=== PATIENT | female | born 1945 | race African-American/Black ===

== ENCOUNTER 2016-08-15 04:51 | Emergency (ER) | payer MEDICARE ==
[~2016-08-15] VITALS: Ht 162.6 cm; Wt 126.6 kg
[~2016-08-15 04:51] MED LIST: ACET500T33 PO; ALPR0.5T PO; AMIT50TA PO; ASPI81TA2 PO; ATEN50TA PO; DICL75TA PO; FURO40TA4 PO; GABA600T PO; GLUC1VIA3 IJ; GUAI473L15 PO; GUAI473S3 PO; HYDR25TA PO; INSU100I13 SQ; INSU100I15 SQ; IPRA4AER IH; LEVO500T38 PO; LEVO88TA4 PO; LISI-338 PO; LISI40TA PO; MENT113P2 TP; METF500T4 PO; METO25TA4 PO; MULT-18 PO; MULT1TAB52 PO; NIFE90TA PO; OMEG-33 PO; OMEP20TA PO; PANT40TA5 PO; PHEN95CM MC; POTA20TA12 PO; SULF1TAB24 PO; TERB15CR2 TP; [UNRECOGNIZED DRUG - CODE] PO
[2016-08-15] MEDS ORDERED: IV NORMAL SALINE 1000ML BAG 1,000 ML IV SCH (05:15)
--- NOTE | 2016-08-15 05:15 | PHYS DOC ---
Past Medical History Past Medical History: Arthritis, Diabetes-Type II, GERD, Heart Disease, Hypertension, Hypothyroid, URI, UTI, Other Additional Past Medical Histor: IBS, RECTAL PROBLEMS (pin worm) Past Surgical History: Cholecystectomy Additional Past Surgical Histo: RECENT CARDIAC CATH, MMK(bladder lift), THYROIDECTOMY Alcohol Use: Rarely Drug Use: None Adult General Chief Complaint Chief Complaint: COUGH HPI HPI Patient is a 70 year old female who presents with cough. Patient reports for 3 days she has had productive cough, fever, sore throat, fatigue. Also reports her eyes are burning and she has mild ALDRIDGE. She has tried acetaminophen (took 500mg 30-60 minutes prior to arrival) and cough drops with insufficient relief. No chest pain or SOB. No other acute complaints. Review of Systems Review of Systems Constitutional: Fever, fatigue Eyes: Burning pain. Denies change in visual acuity HENT: Sore throat. Denies nasal congestion Respiratory: Productive cough. Denies shortness of breath Cardiovascular: Denies chest pain GI: Denies abdominal pain, nausea, vomiting, bloody stools or diarrhea : Denies dysuria or hematuria Musculoskeletal: Denies back pain or joint pain Integument: Denies rash or skin lesions Neurologic: Mild headache. Denies focal weakness or sensory changes Current Medications Current Medications Current Medications Medications (Trade) Dose Ordered Sig/Mirna Start Time Stop Time Status Last Admin Dose Admin Benzonatate (Tessalon Perle) 100 mg 1X ONCE 08/15/16 05:30 08/15/16 05:31 DC 08/15/16 05:37 100 MG Ibuprofen (Motrin) 600 mg 1X ONCE 08/15/16 05:30 08/15/16 05:31 DC 08/15/16 05:37 600 MG Sodium Chloride (Iv Sodium Chloride 0.9% 1000ml Bag) 1,000 ml @ 1,000 mls/hr Q1H 08/15/16 05:15 08/15/16 06:14 08/15/16 05:38 1,000 MLS/HR Allergies Allergies Allergies Coded Allergies Type Severity Reaction Last Updated Verified LG Inhibitors Allergy Severe ANGIOEDEMA 05/10/15 Yes acetaminophen Allergy Intermediate itching 05/10/15 Yes codeine Allergy Intermediate itching 05/11/15 Yes fentanyl Allergy Intermediate itch 05/11/15 Yes fluoxetine Allergy Intermediate rash 05/11/15 Yes morphine Allergy Intermediate hives, rash 05/11/15 Yes propoxyphene Allergy Intermediate itching 05/10/15 Yes tramadol Allergy Intermediate itching 05/11/15 Yes duloxetine Adverse Reaction Intermediate hypertension 05/11/15 Yes milk Adverse Reaction Intermediate diarrhea 05/11/15 Yes simvastatin Adverse Reaction Intermediate headache 05/11/15 Yes Physical Exam Physical Exam Constitutional: Well developed, well nourished, no acute distress, non-toxic appearance HENT: Normocephalic, atraumatic, bilateral external ears normal; oropharynx clear with minimal erythema, no exudate noted Eyes: EOMI, conjunctiva normal, no discharge Neck: Normal range of motion, no stridor Cardiovascular: Tachycardic, regular rhythm, no murmur Lungs & Thorax: Bilateral breath sounds clear to auscultation; intermittent cough Abdomen: Bowel sounds normal, soft, non-distended, no TTP Skin: Warm, dry, no erythema, no rash Extremities: No obvious deformity, no edema Neurologic: Alert and oriented X 3, no gross deficits noted Psychologic: Affect normal, judgement normal, mood normal Current Patient Data Vital Signs Vital Signs Date Time Temp Pulse Resp B/P Pulse Ox O2 Delivery O2 Flow Rate FiO2 08/15/16 05:00 99.9 110 18 166/77 95 Room Air 99.9 Lab Values Laboratory Tests Test 08/15/16 04:57 08/15/16 05:05 Influenza Type A Antigen Negative (NEGATIVE) Influenza Type B Antigen Negative (NEGATIVE) White Blood Count 9.4x10^3/uL (4.0-11.0) Red Blood Count 4.35x10^6/uL (3.50-5.40) Hemoglobin 12.1g/dL (12.0-15.5) Hematocrit 36.7% (36.0-47.0) Mean Corpuscular Volume 84fL (79-100) Mean Corpuscular Hemoglobin 28pg (25-35) Mean Corpuscular Hemoglobin Concent 33g/dL (31-37) Red Cell Distribution Width 15.1% (11.5-14.5) H Platelet Count 299x10^3/uL (140-400) Neutrophils (%) (Auto) 75% (31-73) H Lymphocytes (%) (Auto) 15% (24-48) L Monocytes (%) (Auto) 7% (0-9) Eosinophils (%) (Auto) 2% (0-3) Basophils (%) (Auto) 1% (0-3) Neutrophils # (Auto) 7.1x10^3uL (1.8-7.7) Lymphocytes # (Auto) 1.4x10^3/uL (1.0-4.8) Monocytes # (Auto) 0.7x10^3/uL (0.0-1.1) Eosinophils # (Auto) 0.2x10^3/uL (0.0-0.7) Basophils # (Auto) 0.1x10^3/uL (0.0-0.2) Sodium Level 139mmol/L (136-145) Potassium Level 3.2mmol/L (3.5-5.1) L Chloride Level 101mmol/L (98-107) Carbon Dioxide Level 27mmol/L (21-32) Anion Gap 11 (6-14) Blood Urea Nitrogen 7mg/dL (7-20) Creatinine 0.9mg/dL (0.6-1.0) Estimated GFR (Cockcroft-Gault) 75.3 Glucose Level 163mg/dL (70-99) H Lactic Acid Level 1.7mmol/L (0.4-2.0) Calcium Level 8.1mg/dL (8.5-10.1) L Laboratory Tests 08/15/16 05:05 Laboratory Tests 08/15/16 05:05 EKG EKG [] Radiology/Procedures Radiology/Procedures CXR (my read): No significant change from prior Course & Med Decision Making Course & Med Decision Making Pertinent Labs and Imaging studies reviewed. (See chart for details) Patient is 70 year old female who presents with cough, fever. Likely viral respiratory infection. Will check CXR, labs to evaluate. IVF bolus, ibuprofen, tessalon ordered for relief of symptoms. CXR without acute abnormality per my read. No leukocytosis. Lactic acid wnl. Slight hypokalemia, oral replacement ordered. Influenza swab negative. Discussed results with patient. Will go ahead and cover with azithro for possible atypical pneumonia. Will discharge with rx for azithro, tessalon. Given instructions for close outpatient follow up and strict return precautions. Dragon Disclaimer Dragon Disclaimer This electronic medical record was generated, in whole or in part, using a voice recognition dictation system. Departure Departure Impression: Primary Impression: Cough Disposition: 01 HOME, SELF-CARE Condition: STABLE Referrals: FERMIN ZARAGOZA MD (PCP) Patient Instructions: Cough, Adult, Upper Respiratory Infection, Adult Additional Instructions: Thank you for allowing us to provide care today in the Emergency Department. Take the provided medication as directed. Be sure to take the full course of antibiotics. Schedule a follow up appointment with your primary care doctor. Return promptly to the Emergency Department if you develop any new or concerning symptoms. Scripts Azithromycin (Azithromycin Tablet)250 Mg [id number] Mg PO DAILY ANTI-BIOTIC #4 TAB Ref 0 start taking 08/16/16 Prov:RASTA MELARA MD 08/15/16 Benzonatate (Tessalon Perle)100 Mg Capsule1 Cap PO TID PRN COUGH #21 CAP Prov:RASTA MELARA MD 08/15/16 RASTA MELARA MD Aug 15, 2016 05:15
[2016-08-15 05:22] LABS: BASO # 0.1 x10^3/uL (0.0-0.2); BASO % 1 % (0-3); EOS % 2 % (0-3); HEMATOCRIT 36.7 % (36.0-47.0); HEMOGLOBIN 12.1 g/dL (12.0-15.5); LYMPH # 1.4 x10^3/uL (1.0-4.8); LYMPH % 15 % (24-48); MEAN CORPUSCULAR HEMOGLOBIN 28 pg (25-35); MEAN CORPUSCULAR HGB CONC 33 g/dL (31-37); MEAN CORPUSCULAR VOLUME 84 fL (79-100); MONO % 7 % (0-9); NEUT % 75 % (31-73); PLATELET COUNT 299 x10^3/uL (140-400); RED BLOOD COUNT 4.35 x10^6/uL (3.50-5.40); RED CELL DISTRIBUTION WIDTH 15.1 % (11.5-14.5); WHITE BLOOD COUNT 9.4 x10^3/uL (4.0-11.0)
[2016-08-15] MEDS ORDERED: IBUPROFEN 600 MG TABLET. PO ONE (05:30)
[2016-08-15] MEDS ORDERED: BENZONATATE 100 MG CAPSULE. PO ONE (05:30)
[2016-08-15 05:36] LABS: CALCIUM 8.1 mg/dL (8.5-10.1); CREATININE 0.9 mg/dL (0.6-1.0); GFR 75.3; POTASSIUM 3.2 mmol/L (3.5-5.1)
[2016-08-15 05:46] LABS: OBC FLU VALID
[2016-08-15 05:58] VITALS: BP 175/81
[2016-08-15] MEDS ORDERED: BENZ100C PO (06:02)
[2016-08-15] MEDS ORDERED: AZIT250T6 PO (06:02)
[2016-08-15] MEDS ORDERED: POTASSIUM CHLORIDE 20 MEQ TABLET.ER. PO ONE (06:15)
[2016-08-15] MEDS ORDERED: AZITHROMYCIN 250 MG TABLET PO ONE (06:15)
--- NOTE | 2016-08-15 07:25 | RAD ---
Indication cough, fever. A single view of the chest was obtained and is compared to an examination 05/10/2015. There is mild cardiomegaly which appears stable. A focal process is not seen in either lung. Significant pleural fluid is not present. There is no pneumothorax. Overall a significant change compared to the previous exam is not seen. IMPRESSION: No acute or focal process. No significant change
== END 2016-08-15 06:35 | disposition home or self-care (01) ==
LOC: ER 04:51
DX: R05 Cough (principal); R50.9 Fever, unspecified; J02.9 Acute pharyngitis, unspecified; M19.90 Unspecified osteoarthritis, unspecified site; E11.9 Type 2 diabetes mellitus without complications; K21.9 Gastro-esophageal reflux disease without esophagitis; I11.9 Hypertensive heart disease without heart failure; E89.0 Postprocedural hypothyroidism; Z87.440 Personal history of urinary (tract) infections; Z90.49 Acquired absence of other specified parts of digestive tract; Z88.5 Allergy status to narcotic agent; Z88.8 Allergy status to other drugs, medicaments and biological substances; Z91.011 Allergy to milk products
CPT/HCPCS: 36415; 71020; 80048; 83605; 85027; 87040; 87804; 96360; 99285; J7030; Q0144

== ENCOUNTER 2019-05-18 18:06 | Emergency (ER) | payer MEDICARE, OTHER ==
[~2019-05-18] VITALS: Ht 162.6 cm; Wt 113.4 kg
[~2019-05-18 18:06] MED LIST changes: +ASPI-630 PO; -ASPI81TA2 PO; +AZIT250T6 PO; +BENZ100C PO; -GLUC1VIA3 IJ; +GLUC1VIA6 IJ; -LEVO500T38 PO; +LEVO500T59 PO; +LISI-130 PO; -LISI40TA PO; +METF500T16 PO; -METF500T4 PO; -OMEP20TA PO; +OMEP20TA8 PO; -PANT40TA5 PO; +PANT40TA77 PO
[2019-05-18 18:20] VITALS: BP 147/67
[2019-05-18] MEDS ORDERED: levimir SL (18:37)
--- NOTE | 2019-05-18 18:38 | PHYS DOC ---
Past Medical History Past Medical History: Arthritis, Diabetes-Type II, GERD, Heart Disease, H ypertension, Hypothyroid, URI, UTI, Other Additional Past Medical Histor: IBS, RECTAL PROBLEMS (pin worm) Past Surgical History: Cholecystectomy Additional Past Surgical Histo: RECENT CARDIAC CATH, MMK(bladder lift), THYROIDECTOMY Alcohol Use: Rarely Drug Use: None Adult General Chief Complaint Chief Complaint: MEDICATION REFILL HPI HPI 73-year-old female with underlying history of diabetes, hypertension presents to the emergency department for medication refill. Patient states she's been out of her levimir for approximate one week. She takes Levemir 45 units subcutaneous at bedtime. Current blood sugars 189. She denies any complaints of shortness breath, chest pain, nausea, vomiting, headache, visual change, abdominal pain. She states she has no complaints just wants a refill of medications. She attempted to go to urgent care however states they were closed. All other ROS negative unless documented in HPI Review of Systems Review of Systems See Above Allergies Allergies Allergies Coded Allergies Type Severity Reaction Last Updated Verified LG Inhibitors Allergy Severe ANGIOEDEMA 05/10/15 Yes acetaminophen Allergy Intermediate itching 05/10/15 Yes codeine Allergy Intermediate itching 05/11/15 Yes fentanyl Allergy Intermediate itch 05/11/15 Yes fluoxetine Allergy Intermediate rash 05/11/15 Yes morphine Allergy Intermediate hives, rash 05/11/15 Yes propoxyphene Allergy Intermediate itching 05/10/15 Yes tramadol Allergy Intermediate itching 05/11/15 Yes duloxetine Adverse Reaction Intermediate hypertension 05/11/15 Yes milk Adverse Reaction Intermediate diarrhea 05/11/15 Yes simvastatin Adverse Reaction Intermediate headache 05/11/15 Yes Physical Exam Physical Exam See Above Constitutional: Well developed, well nourished, no acute distress, non-toxic appearance. [] HENT: Normocephalic, atraumatic, bilateral external ears normal, oropharynx moist, no oral exudates, nose normal. [] Cardiovascular:Heart rate regular rhythm, no murmur [] Lungs & Thorax: Bilateral breath sounds clear to auscultation [] Abdomen: Bowel sounds normal, soft, no tenderness, no masses, no pulsatile masses. [] Skin: Warm, dry, no erythema, no rash. [] Extremities: No tenderness, no edema. [] Neurologic: Alert and oriented X 3, no focal deficits noted. [] Psychologic: Affect normal, judgement normal, mood normal. [] Current Patient Data Lab Values Laboratory Tests Test 05/18/19 18:22 Glucose (Fingerstick) 189 mg/dL (70-99) H EKG EKG [] Radiology/Procedures Radiology/Procedures [] Course & Med Decision Making Course & Med Decision Making Pertinent Labs and Imaging studies reviewed. (See chart for details) []73-year-old female with underlying history of diabetes, hypertension presents to the emergency department for medication refill. Patient states she's been out of her levimir for approximate one week. She takes Levemir 45 units subcutaneous at bedtime. Current blood sugars 189. She denies any complaints of shortness breath, chest pain, nausea, vomiting, headache, visual change, abdominal pain. She states she has no complaints just wants a refill of medications. She attempted to go to urgent care however states they were closed. Refill of Levimir 45U sq qHS Recommend establishing care with PCP No acute complaints, no labs drawn BS 180's Dragon Disclaimer Dragon Disclaimer This electronic medical record was generated, in whole or in part, using a voice recognition dictation system. Departure Departure Impression: Primary Impression: Diabetes Additional Impression: Medication refill Disposition: 01 HOME, SELF-CARE Condition: STABLE Referrals: FERMIN ZARAGOZA MD (PCP) Patient Instructions: Hyperglycemia, [id number] Additional Instructions: Recommend follow up with PCP 3 - 5 days Return to the ER with worsening symptoms, intractable pain, fever, altered mental status Tylenol/Motrin as needed for pain Establish care with PCP as soon as possible Scripts [levimir] No Conflict Check 45 UNITS SL QHS, #1 BOTTLE 3 Refills Prov: RASTA FLORES MD 05/18/19 Problem Qualifiers Primary Impression: Diabetes Diabetes mellitus type: type 2 Diabetes mellitus 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
== END 2019-05-18 18:50 | disposition home or self-care (01) ==
LOC: ER 18:06
DX: E11.9 Type 2 diabetes mellitus without complications (principal); I10 Essential (primary) hypertension; Z76.0 Encounter for issue of repeat prescription; M19.90 Unspecified osteoarthritis, unspecified site; K21.9 Gastro-esophageal reflux disease without esophagitis; I11.9 Hypertensive heart disease without heart failure; E03.9 Hypothyroidism, unspecified; Z87.440 Personal history of urinary (tract) infections; Z79.4 Long term (current) use of insulin; Z88.8 Allergy status to other drugs, medicaments and biological substances; Z88.5 Allergy status to narcotic agent; Z88.6 Allergy status to analgesic agent; Z91.011 Allergy to milk products
CPT/HCPCS: 82962; 99283